=== PATIENT | female | born 1930 | race Caucasian/White ===

== ENCOUNTER 2018-02-21 07:01 | Emergency (ER) | payer OTHER, BC ==
--- NOTE | 2018-02-21 07:09 | EDPHY ---
H & P Time Seen by Provider: 02/21/18 07:01 HPI/ROS: CHIEF COMPLAINT: Facial laceration HISTORY OF PRESENT ILLNESS: Patient was getting out of bed to go to the bathroom this morning, her legs are usually pretty stiff in the morning. Getting out of bed she tripped and could not recover her balance because of her leg stiffness and fell hitting her head. She has a laceration on the right forehead. She denies headache or neck pain or loss of consciousness or weakness or numbness in extremities. Mild headache only over the right forehead. No recent illnesses. REVIEW OF SYSTEMS: Eye: no change in vision ENT: no sore throat Cardiac: no chest pain or syncope Pulmonary: no cough or SOB Abdomen: no vomiting, diarrhea, abdominal pain Musculoskeletal: no back pain or neck pain Skin: Forehead laceration. lesion on chin from basal cell skin cancer, she is getting radiation treatments. Neuro: HPI Constitutional: no fever : no urinary symptoms, but does need to urinate now. A comprehensive 10 point review of systems is otherwise negative aside from elements mentioned in the history of present illness. PAST MEDICAL HISTORY: Includes arthritis, appendectomy, cholecystectomy. Ovarian surgery. Basal cell skin cancer. Social history: Lives at [facility] General Appearance: Alert and conversant, cooperative. Eyes: No scleral icterus. Pupils equal reactive extraocular motion intact. ENT, Mouth: Normal mucous membranes. No hemotympanum. No facial bony tenderness. Respiratory: Normal respiratory effort, breath sounds equal, lungs are clear to auscultation. Cardiovascular: Regular rate and rhythm. Gastrointestinal: Abdomen is soft and non tender. Neurological: Alert, face symmetric, normal motor and sensory in extremities. Skin: 2.5 cm right forehead laceration just superior to the eyebrow. Old Skin lesion to the chin, from basal cell skin cancer. Musculoskeletal: No extremity or cervical, thoracic, or lumbar spine tenderness to palpation. Specifically both knees have full range of motion and no bony tenderness, stable. Psychiatric: Not agitated. Emergency Department course/MDM: Patient has clear sensorium and knows where she is, how old she is, fluent speech. CT head for head trauma with laceration and age, with headache. Clearly not syncope by history. Cervical spine cleared clinically. Procedure: Laceration repair. Verbal consent was obtained from the patient. The 2.5 cm laceration on the right forehead was anesthetized using 0.5% bupivacaine with epinephrine. The wound was irrigated with standard emergency department protocol, draped and explored. There were no deep structures involved. No foreign body found. The wound was repaired with 5-0 vicryl subcu, and 6-0 Prolene. The wound repair was complex. Excellent hemostasis was obtained. Wound care instructions were discussed and the patient was warned regarding scarring. The procedure was performed by myself. 830: ambulatory, steady gait, safe and stable for discharge with daughter who is here in the ED with her. Constitutional: Initial Vital Signs Temperature (C) 37 C 02/21/18 07:03 Heart Rate 86 02/21/18 07:03 Respiratory Rate 16 02/21/18 07:03 Blood Pressure 187/72 H 02/21/18 07:03 O2 Sat (%) 94 02/21/18 07:03 O2 Delivery Mode Room Air Allergies/Adverse Reactions: Penicillins Allergy (Verified 02/21/18 07:22) Home Medications: Medication Instructions Recorded Citalopram [CeleXA 20 MG] 02/21/18 Raloxifene HCl [Evista 60mg (RX)] 60 mg PO DAILY 02/21/18 Sennosides/Docusate Sodium [Stool 02/21/18 Softener-Laxative Tablet] Medical Decision Making - Diagnostics Imaging Results: Imaging Impressions Head CT 02/21/18 07:09 Impression: 1. Right frontal soft tissue swelling. 2. No acute intracranial abnormality identified. 3. Likely old left depressed nasal fracture. 4. Cerebral atrophy. A message was left for Dr. Rogerio Freeman at 8:00 AM. General information for patients regarding this examination can be found at [email or web address]. If you have questions or comments about this report, please contact me at [phone] (hospital) or [phone] (cell). Imaging: Discussed imaging studies w/ call center coordinator Radiologist Differential Diagnosis: Differential diagnosis considered for head injury including but not limited to concussion, skull fracture, intraparenchymal contusion, subarachnoid, subdural and epidural hematoma. - Data Points Medications Given: Discontinued Medications Diphtheria/Tetanus/Acell Pertussis (Boostrix) 0.5 ml IM .ONCE ONE Stop: 02/21/18 07:30 Last Admin: 02/21/18 07:50 Dose: 0.5 ml Departure - Departure Disposition: Home, Routine, Self-Care Clinical Impression: Laceration of forehead without complication Qualifiers: Encounter type: initial encounter Qualified Code(s): S01.81XA - Laceration without foreign body of other part of head, initial encounter Condition: Good Instructions: Laceration (ED), Head Injury (ED) Additional Instructions: Wound Care Follow-Up: Removal of sutures in 5 days. Suture removal is complimentary in uncomplicated cases. Infection or abnormal findings would require reevaluation by the MD. In that case, you may be billed. Referrals: Jose F Nava MD [Primary Care Provider] - As per Instructions
[2018-02-21] MEDS ORDERED: TDAP ADULT 0.5 ML INJ (BOOSTRIX) IM ONE (07:29)
[2018-02-21 08:17] VITALS: BP 175/73
== END 2018-02-21 08:43 | disposition home or self-care (01) ==
LOC: EDUNIT#
PROC: 0HQ1XZZ Repair Face Skin, External Approach (ICD-10-PCS; principal; 2018-02-21)
DX: S01.81XA Laceration without foreign body of other part of head, initial encounter (principal); W01.0XXA Fall on same level from slipping, tripping and stumbling without subsequent striking against object, initial encounter; Y92.009 Unspecified place in unspecified non-institutional (private) residence as the place of occurrence of the external cause; Y93.9 Activity, unspecified